=== PATIENT | male | born 1960 | race Caucasian/White ===

== ENCOUNTER 2017-10-22 19:26 | Emergency (ER) | payer OTHER ==
[~2017-10-22] VITALS: Ht 185.4 cm; Wt 103.4 kg
[2017-10-22 19:41] VITALS: Ht 185.4 cm; Wt 103.4 kg
[2017-10-22 21:40] VITALS: BP 137/82
== END 2017-10-22 21:41 | disposition home or self-care (01) ==
LOC: ED 19:26
DX: K65.1 Peritoneal abscess (principal); Z88.0 Allergy status to penicillin

== ENCOUNTER 2018-05-08 21:24 | Emergency (ER) | payer OTHER ==
[2018-05-08 21:29] VITALS: Ht 190.5 cm
[2018-05-08 21:56] VITALS: BP 153/93
== END 2018-05-08 21:56 | disposition home or self-care (01) ==
LOC: ED 21:24
DX: H60.92 Unspecified otitis externa, left ear (principal); R03.0 Elevated blood-pressure reading, without diagnosis of hypertension; Z88.0 Allergy status to penicillin; M10.9 Gout, unspecified; Z98.890 Other specified postprocedural states